=== PATIENT | female | born 1955 | race Caucasian/White ===

== ENCOUNTER 2017-10-16 19:40 | Inpatient (IN) | payer OTHER ==
[~2017-10-16] VITALS: Ht 165.1 cm; Wt 58.0 kg
--- NOTE | ~2017-10-16 | 2DMMODE ---
[facility] [address] [place] [address] 2 D/M-MODE ECHOCARDIOGRAM Name: ALLISON DE OLIVEIRA A Room #: 245-P [facility] IN M.R.#: [id number] Admission: 10/16/17 Attend Phys: Daniel Lu, Discharge: Date of : 53 Date of Service: 10/24/17 1849 Report #: [id number] THIS REPORT FOR: //name// APPROVED REPORT Study performed: 10/24/2017 12:48:59 EXAM: Comprehensive 2D, Doppler, and color-flow Echocardiogram Patient Location: Bedside Room #: [facility] Status: on-call BSA: 1.76 HR: 109 bpm BP: 101/71 mmHg Rhythm: NSR Other Information Study Quality: Adequate Risk Factors: Cardiac Risk Factors: Smoking Indications Septic Shock Pulmonary Edema Respiratory Failure 2D Dimensions LVEF(%): 77.30 (>50%) IVSd: 13.57 (7-11mm) LVOT Diam: 18.00 (18-24mm) LVDd: 32.55 mm PWd: 14.31 (7-11mm) Ascending Ao: 33.85 (22-36mm) LVDs: 17.98 (25-40mm) Aortic Root: 33.64 mm LV Single Plane 4CH: 68.89 % LV Single Plane 2CH: 67.29 % Armijo's LVEF: 68.09 % Biplane EF: 68.7 % Volumes Left Atrial Volume (Systole) Single Plane 4CH: 33.98 mL Single Plane 2CH: 31.36 mL LA ESV Index: 21.00 mL/m2 Aortic Valve AoV Peak Matt.: 1.60 m/s [facility] [address] [place] [address] 2 D/M-MODE ECHOCARDIOGRAM Name: ALLISON DE OLIVEIRA Elton Room #: [address] [place] [address] [place] ..#: [id number] Admission: 10/16/17 Attend Phys: Daniel Lu, Discharge: Date of : 53 Date of Service: 10/24/17 1849 Report #: [id number] AO Peak Gr.: 10.24 mmHg LVOT Max P.39 mmHg LVOT Max V: 1.45 m/s PEDRITO Vmax: 2.37 cm2 Pulmonary Valve PV Peak Matt.: 0.93 m/s PV Peak Gr.: 3.43 mmHg Left Ventricle The left ventricle is normal size. There is normal LV segmental wall motion. Mild concentric left ventricular hypertrophy. Left ventricular systolic function is normal. The left ventricular ejection fraction is within the normal range. LVEF is 70%. Mid LVot velocity is 40-45 mmHg. This study is not technically sufficient to allow evaluation of the LV diastolic function. Right Ventricle The right ventricle is normal size. The right ventricular systolic function is normal. Atria The left atrium size is normal. The right atrium size is normal. Aortic Valve The Aortic valve is mildly sclerotic. No aortic regurgitation is present. There is no aortic valvular stenosis. Mitral Valve There is mitral annular calcification. There is no mitral valve regurgitation noted. No evidence of mitral valve stenosis. Tricuspid Valve The tricuspid valve is normal in structure. There is no tricuspid valve regurgitation noted. Pulmonic Valve The pulmonary valve is normal in structure. There is no pulmonic valvular regurgitation. Great Vessels The aortic root is normal in size. IVC is not visualized. Pericardium There is no pericardial effusion. [facility] [address] [place] [address] 2 D/M-MODE ECHOCARDIOGRAM Name: ALLISON DE OLIVEIRA Room #: 245-P [facility] IN .R.#: [id number] Admission: 10/16/17 Attend Phys: Daniel Lu, Discharge: Date of : 53 Date of Service: 10/24/17 1849 Report #: [id number] <Conclusion> The left ventricle is normal size. Mild concentric left ventricular hypertrophy. LVEF is 70%. Mid LVot velocity is 40-45 mmHg. The right ventricular systolic function is normal. The left atrium size is normal. The Aortic valve is mildly sclerotic. There is no aortic valvular stenosis. There is mitral annular calcification. There is no mitral valve regurgitation noted. The aortic root is normal in size. There is no pericardial effusion. <ELECTRONICALLY SIGNED> By: Gorge Sorto MD, FACC 10/24/171848 48 48 Gorge Sorto MD, FACC /INF
--- NOTE | ~2017-10-16 | P ---
[facility] [place] [address] PROCEDURE REPORT Name: ALLISON DE OLIVEIRA Elton Room #: 245-P [facility] IN M.R.#: [id number] Admission: 10/16/17 Attend Phys: Daniel Lu MD Discharge: Date of : 53 Report #: [id number] THIS REPORT FOR: //name// CC: Daniel JANSEN DATE OF SERVICE: 10/19/2017 PROCEDURE: Upper endoscopy. PATIENT LOCATION: [facility]. INDICATIONS: The patient is a 61-year-old with history of alcohol abuse who presented with altered mental status and septic shock, found to be anemic with NG per aspirate, requiring blood transfusions. She had an NG placed, which was coiled in the esophagus, and the procedure was performed to evaluate cause of bleeding and to advance feeding tube. DESCRIPTION OF PROCEDURE: The patient was placed in the left lateral decubitus position in ICU at [facility], and the T2 adult upper endoscope was then advanced into the esophagus and to the extent of the second portion of the duodenum, then withdrawn slowly for careful inspection. The duodenum appeared normal. In the stomach, there was a large hiatal hernia and within the hernia sac was a small ulcer with a visible vessel. This was injected with 2 mL of epinephrine. Bipolar cautery was applied, and then, a hemostatic clip was placed. In the esophagus, she had LA grade B esophagitis in the lower third of the esophagus. No evidence of varices. The NG tube was then removed, and the Dobbhoff was advanced into the antrum. Due to significant looping, we could not advance into the duodenum, and a Dobbhoff was left in place and then scope was withdrawn carefully. There were no complications from the procedure. SPECIMENS REMOVED: None. ESTIMATED BLOOD LOSS: Zero mL. ANESTHESIA TYPE: Propofol per the ICU team. RECOMMENDATIONS: Change PPI infusion to pantoprazole 40 mg IV b.i.d. Avoid NSAIDs. Check a KUB to identify Dobbhoff is in proper place, then remove the stylet and use for feeding medications and water. Monitor H and H and transfuse as needed. We will follow along with you. <ELECTRONICALLY SIGNED> By: Brooks Stanley MD 10/19/17 1014 0904 1001 Brooks Stanley MD /nt
--- NOTE | ~2017-10-16 | HC ---
[facility] [place] [address] CONSULTATION Name: ALLISON DE OLIVEIRA Room #: 245-P ADM IN M.R.#: [id number] Admission: 10/16/17 Attend Phys: Daniel Lu MD Discharge: Date of : 53 Report #: [id number] THIS REPORT FOR: //name// CC: Vishal JANSEN DATE OF SERVICE: 10/17/2017 PULMONARY CRITICAL CARE CONSULTATION REFERRING PROVIDER: Ira Jennings. REASON FOR CONSULTATION: Respiratory failure. CHIEF COMPLAINT: Altered mental status and shortness of breath. HISTORY OF PRESENT ILLNESS: Our group was asked to urgently see the patient this morning. I was called late last night by at the Emergency Department. I came and evaluated the patient early this morning. The patient apparently presented to the Emergency Department and brought in by friends, unresponsive. Apparently, had been poorly responsive throughout the day. On the Emergency Department, was noted to be in severe acidosis with a pH of 6.9 and predominantly a metabolic acidosis. The patient also noted to have elevated liver enzymes, profound anemia and coagulopathy. The patient subsequently required intubation and aggressive supportive care in the Emergency Department. Currently, she is on mechanical ventilatory support, very tachypneic and poorly responsive. Unable to get any further history from the patient at this time. There is some dark brown material coming from her NG tube. ALLERGIES: None known. PAST MEDICAL HISTORY: 1. Hypothyroidism. 2. Probable obstructive lung disease. OUTPATIENT MEDICATIONS: Include magnesium oxide, folic acid, Synthroid, ferrous sulfate, tramadol, Spiriva and vitamin C. SOCIAL HISTORY: The patient is an active smoker. FAMILY HISTORY: Unobtainable. REVIEW OF SYSTEMS: Unobtainable due to her current neurologic status. PHYSICAL EXAMINATION: VITAL SIGNS: Hypothermic, pulse 100, respiratory rate 20 and blood pressure [facility] [address] [place] [address] CONSULTATION Name: ALLISON DE OLIVEIRA Elton Room #: 245-P [facility] IN [facility]#: [id number] Admission: 10/16/17 Attend Phys: Daniel Lu MD Discharge: Date of : 53 Report #: [id number] 98/76. GENERAL: This is a middle-aged woman, poorly responsive, on mechanical ventilatory support. ENT: No oropharyngeal lesions. NECK: Revealed a right IJ triple-lumen catheter in place. No surrounding erythema or hematoma. LUNGS: Revealed coarse breath sounds, the yellow secretions coming from endotracheal tube. CARDIOVASCULAR: Heart was regular. No murmurs noted. ABDOMEN: Soft. No masses. Diminished bowel sounds. EXTREMITIES: Cool distally. No edema. LABORATORY DATA: Chest x-ray and CT chest reveal bilateral right greater than left upper lobe infiltrates. There is a very large hiatal hernia and possibly paraesophageal hernia. Questionable gallbladder wall thickening on CT abdomen and pelvis and possibly mild colitis. Significant fatty liver noted on CT imaging as well. Cultures are pending. IMPRESSION: 1. Respiratory failure. 2. Severe metabolic acidosis. 3. Severe sepsis, presumed pneumonia as source. We will check influenza screen, respiratory viral panel and cultures. 4. Large paraesophageal hernia, but still be concerned about ischemia of the herniated bowel. 5. Possible colitis. 6. History of tobacco abuse with probable chronic obstructive pulmonary disease. SUGGESTIONS: 1. Bronchodilators. 2. Multiple consultants including Nephrology for oliguria and likely oliguric renal failure with delay in the rise in creatinine as well as Infectious Disease Service. 3. Continue with supportive ICU care. 4. Follow arterial blood gases regarding acidosis. 5. GI consultation regarding elevated liver enzymes and bilirubin. 6. Further recommendations to follow. Total critical care time 40 minutes, not including procedures. Discussed with nursing at the bedside earlier this morning. <ELECTRONICALLY SIGNED> By: Bhupinder Mulligan MD 10/21/17 1823 0821 1117 Bhupinder Mulligan MD /nt
--- NOTE | ~2017-10-16 | P ---
[facility] [place] [address] PROCEDURE REPORT Name: ALLISON DE OLIVEIRA Elton Room #: 245-P [facility] IN M.R.#: [id number] Admission: 10/16/17 Attend Phys: Daniel Lu MD Discharge: Date of : 53 Report #: [id number] THIS REPORT FOR: //name// CC: Vishal JANSEN DATE OF SERVICE: 10/17/2017 PROCEDURE: Left radial arterial line placement. INDICATION: Hypotension, on multiple vasopressors, on high-dose vasopressors, need for continuous blood pressure monitoring. PROCEDURE NOTATION: Left radial artery was chosen for site and was placed in optimal positioning. It was cleansed with 2% chlorhexidine gluconate. A sterile field was created and using 20-gauge Arrow arterial catheter kit, the left radial artery was accessed on the third attempt. Catheter was easily advanced into this position and was sutured in place with 3-0 silk and connected to a pressure transducer. Good waveform noted on the monitor. Line flushed and aspirated easily. Good distal perfusion noted post-procedure. This was dressed with clear Op-Site. <ELECTRONICALLY SIGNED> By: Bhupinder Mulligan MD 10/21/17 1823 0815 1104 Bhupinder Mulligan MD /nt
--- NOTE | ~2017-10-16 | HC ---
[facility] [address] CONSULTATION Name: ALLISON DE OLIVEIRA Elton Room #: 245-P [facility] IN .R.#: [id number] Admission: 10/16/17 Attend Phys: Vishal Meier DO Discharge: Date of : 53 Report #: [id number] THIS REPORT FOR: //name// CC: Vishal JANSEN DATE OF SERVICE: 10/17/2017 NEPHROLOGY CONSULTATION REASON FOR CONSULTATION: Renal failure and oliguria as well as multiple electrolyte abnormalities. HISTORY OF PRESENT ILLNESS: This is a 61-year-old female who was brought into the Emergency Room by a friend last evening. Upon arrival, she was hypotensive and hypoglycemic. She was found to be septic. She had bilateral pulmonary infiltrates. Her presenting blood pressure was 83/46. She had a temperature of 94.1 at that time and an oxygen saturation of 88%. She was given a couple of liters of IV fluids for resuscitation in the Emergency Room. She was eventually intubated because of her poor respiratory status. She was placed in the ICU on sepsis protocol. We were asked to see her as her creatinine level was elevated on admission to 1.8; it is actually down to 1.5, but she has been oliguric. She developed multiple electrolyte abnormalities and she also has a severe metabolic acidosis. Her presenting bicarbonate was only 10. Her presenting anion gap was 34 and she had a blood gas on first presentation of 6.99 with a pCO2 of 29 and a pO2 of 71. Lactate was 7.44. She has been documented to have a high number of ketones in her urine. We were called to see her this morning. Overnight, she had 250 mL of urine output. She had 450 mL out through her NG tube. She had 5.3 liters of intake. She remains on Levophed at 4 mcg per minute at this point. Blood pressure has improved, running in the 120/70 range at this time. She does have better oxygen saturation. PAST MEDICAL HISTORY: Unobtainable from the patient at this time. This is only available through her ER visit note prior to intubation. It looks like she has some hypothyroidism and is on some replacement, although that dose is small. She has been known be chronically anemic. She has a large hiatal hernia, although I do not know how much she has had as far as symptoms related to that. Little else available historically at this point. We have no older records of this hospital available. The other prior ones were from 1996 and 1998 and those have all been purged from the system. ADMITTING MEDICATIONS: Magnesium 400 mg daily, folate 1 mg daily, levothyroxine 0.025 mg daily, iron 325 mg daily, tramadol p.r.n., Spiriva inhaler and some vitamin C 500 mg daily. [address] [address] CONSULTATION Name: ALLISON DE OLIVEIRA Elton Room #: 245-P ADM IN M.R.#: [id number] Admission: 10/16/17 Attend Phys: Vishal Meier DO Discharge: Date of : 53 Report #: [id number] ALLERGIES: No known medical allergies. FAMILY HISTORY: Unavailable. SOCIAL HISTORY: The patient is , lives in [place], [place]. That being said, she was brought in by a friend and there has been a son who has come in, but no other family has been around. No children and no family at this time. The admitting record shows that she is disabled, although I do not have the details of that. REVIEW OF SYSTEMS: Similarly unavailable. PHYSICAL EXAMINATION: GENERAL: A 61-year-old female who was seen in the Intensive Care Unit. She is orally intubated. She is sedated at this time. VITAL SIGNS: Blood pressure 114/67, heart rate 100, respiratory rate is 28, oxygen saturation 100% and CVP is only about 11 overall. HEENT: Pupils are 2 mm. She does show icteric sclerae. She is orally intubated. NECK: Supple. No JVD. CHEST: Shows fairly symmetrical breath sounds. They are coarse. There are some posterior rales. HEART: Has a borderline tachycardia, but is regular. ABDOMEN: Has absent bowel sounds. Abdomen is very firm, particularly right middle and right lower quadrant. Difficult to tell if this is a big liver or if there is some other mass or fullness going on in the right abdomen. Left side is much less firm. EXTREMITIES: Show no peripheral edema. She has dramatically decreased skin turgor diffusely. I see no rashes. DIAGNOSTIC DATA: Chest x-ray shows bilateral infiltrates. I reviewed her CT scan of her chest. It confirms bilateral multilobar infiltrates, no particular. Note, the liver was interpreted as having severe hepatic steatosis. From what I could see of the kidneys, they were of normal size and unobstructed. Lab on admission: Sodium 140, potassium 3.2, chloride 96, bicarbonate 10, BUN 17, creatinine 1.8 and glucose at that time was 46. She received glucose and insulin. AST of 226, ALT of 63. Calcium 8.5. Total protein 6.0. Albumin 2.6. Total bilirubin 4.4, alkaline phosphatase 294. About 8 hours later, sodium 143, potassium 2.2, chloride 105, bicarb 15, BUN 16, creatinine 1.5, glucose 125 and calcium 6.6. Acetaminophen is negative. Alcohol is negative. Salicylates were 4.3. Free T4 was 0.7. White count 13.6, hemoglobin 6.5, hematocrit 21.9 and platelets 257,000. Differential on the white count; 81 segs, 3 bands, 9 lymphs and 5 monocytes. Urinalysis: Specific gravity 1.025, pH 6.0, 1+ [facility] [address] [place] [address] CONSULTATION Name: DE OLIVEIRAALLISON Room #: 245-P [facility] IN [facility].#: [id number] Admission: 10/16/17 Attend Phys: Vishal Meier DO Discharge: Date of : 53 Report #: [id number] protein, 3+ ketones, 2+ bilirubin, 0-5 white cells and no red cells. Blood gas on initial presentation, pH of 6.99, pCO2 of 29.2 and pO2 of 71.5 with a lactate of 7.4. Again at 04:00, pH of 7.25, pCO2 of 22, pO2 of 103 and lactate at 1.73. ASSESSMENT: 1. Sepsis. She presented with hypotension, hypoglycemia, hypothermia, leukocytosis and bilateral pulmonary infiltrates. She has been given some IV fluids. Blood pressure is still somewhat marginal. She is still dry on exam and needs more fluid. Cultures have been drawn and she has been started on broad-spectrum antibiotics for sepsis protocol. Hemodynamically, she is doing a bit better. We will await cultures. 2. Acute kidney injury. She remains oliguric. She is still dry on exam and that is quite profoundly so. She has gotten quite a bit of fluids, but we will give her some additional half normal saline. As her blood pressure maintains adequately, she will start making some more urine. Kidneys are unobstructed. Creatinine has actually started to drop mildly already with additional IV fluids. 3. Hypokalemia, severe. She has gotten some insulin and dextrose unfortunately, and now I will make her potassium shift more. Also, as her acidosis corrects, she will shift more potassium. So, she is probably several 100 milliequivalents deplete. We will give her 120 mEq over the next 6-10 hours and follow along with her potassium. I am sure she will need more thorough potassium replacement. In addition, we need to check her divalent cations and anions, including magnesium and phosphatase as she could well be depleted of all those. 4. Acidosis, metabolic with a combined lactate and ketoacidosis. Her lactate is largely corrected with blood pressure and volume replacement and treatment of her sepsis. She still has significant ketones. Anion gap is still high. She needs further volume, dextrose infusion and as she starts to metabolize, that her ketoacidosis will clear. She should need additional bicarbonate at this time is her pH is actually correcting fairly readily. 5. Respiratory failure with bilateral pulmonary infiltrates, on broad-spectrum antibiotics. 6. Anemia, severe. She is already getting 2 units of packed red blood cells. She has a very high MCV. Workup to follow. 7. Hepatic failure. Bilirubin is over 4. AST is very elevated, ALT is not as elevated. With her high MCV, all that pattern might suggest alcohol as an etiology, but her liver on exam appears very large. Only if there is not some other underlying hepatic abnormalities here, workup as we go along. 8. Hypothyroidism. She will need continued replacement. PLAN: 1. I will increase her IV fluids and give her another liter of half normal saline on top of which is already getting. 2. Potassium replacement IV. Again, we will target a 120 mEq and see how she responds to that. I do expect her potassium will remain very low as her [facility] [address] [place] [address] CONSULTATION Name: ALLISON DE OLIVEIRA Room #: 245-P [facility] IN M.R.#: [id number] Admission: 10/16/17 Attend Phys: Vishal Meier DO Discharge: Date of : 53 Report #: [id number] acidosis corrects. 3. Follow up hemoglobin. 4. Await cultures. 5. Continue intensive supportive care. 6. Down the line, further evaluation of her hepatic status. <ELECTRONICALLY SIGNED> By: Roger Valdovinos MD 10/18/17 1231 0829 1211 Roger Valdovinos MD /nt
--- NOTE | ~2017-10-16 | EKG ---
[place] [address] [address] [place] [address] ELECTROCARDIOGRAM REPORT Name: DE OLIVEIRAALLISON Room #: 170-12 ADM IN M.R.#: [id number] Admission: 10/16/17 Attend Phys: Vishal Meier DO Discharge: Date of : 53 Report #: [id number] THIS REPORT FOR: //name// [facility] ED Test Date: 2017-10-16 Test Time: 19:59:56 Pat Name: ALLISON DE OLIVEIRA Department: Room: 170 Gender: F [employer] Engineer [employer]: [id number] : [id number] Requested By: Lucero Villalobos Order Number: [id number] MD: Kushal Esquivel Measurements Intervals Volcano Rate: 86 P: 40 AL: 171 QRS: 24 QRSD: 86 T: 52 QT: 467 QTc: 559 Interpretive Statements Sinus rhythm Borderline low voltage, extremity leads Abnormal R-wave progression, early transition Prolonged QT interval Compared to ECG 03/15/1997 12:30:00 Prolonged QT interval now present Sinus bradycardia no longer present Electronically Signed On 10-16-2017 23:07:36 CLINICAL PARTNER by Kushal Esquivel [email or web address] <ELECTRONICALLY SIGNED> By: Kushal Esquivel MD 10/16/17 2307 58 58 Kushal Esquivel MD /EPI
--- NOTE | ~2017-10-16 | HC ---
[facility] [place] [address] CONSULTATION Name: ALLISON DE OLIVEIRA Room #: 245-P [facility] IN M.R.#: [id number] Admission: 10/16/17 Attend Phys: Vishal Meier DO Discharge: Date of : 53 Report #: [id number] THIS REPORT FOR: //name// CC: Vishal JANSEN DATE OF SERVICE: 10/17/2017 INFECTIOUS DISEASE CONSULTATION ATTENDING PHYSICIAN: Vishal Meier DO. REASON FOR CONSULTATION: Sepsis. HISTORY OF PRESENT ILLNESS: A 61-year-old white woman is brought to the Emergency Room by a friend, reporting that the patient was doing rather poorly, with increasing difficulty in breathing and extreme weakness. The patient is found to be septic. She is started on Levaquin, vancomycin and Zosyn. She is on pressors. Now she is in the intensive care unit. She is intubated through oral cavity. She has needed a radial artery catheter as well as right internal jugular central venous catheter. The patient is gravely ill and unable to give any information whatsoever. All information on this patient is gathered from the review of her records. DRUG ALLERGIES: None listed. MEDICATIONS: The patient is on Levaquin 750 mg every 48 hours, vancomycin 500 mg IV every 12 hours, Zosyn 3.375 grams IV every 6 hours, chlorhexidine oral care, Atrovent and albuterol inhalation treatments, D5 normal saline at 1000 mL every 8 hours, hydrocortisone 100 mg IV every 6 hours, propofol sedation, p.r.n. glucose and p.r.n. glucagon. She is receiving Levophed. She is also on ondansetron drip. She is on epinephrine and vasopressin per protocol, but not receiving these yet. She is sedated with midazolam. Regular insulin drip ongoing, replacement of potassium and magnesium per protocol. SOCIAL HISTORY: Unable to obtain. FAMILY HISTORY: Unable to obtain. REVIEW OF SYSTEMS: Unable to obtain. PAST MEDICAL HISTORY: Unable to obtain. MEDICATIONS: A review of records from the Emergency Room indicates the patient is on treatment at home with folic acid, levothyroxine, tramadol, Tiotropium. From medications, it can be surmise that the patient may have hypothyroidism as [address] [address] CONSULTATION Name: ALLISON DE OLIVEIRA Elton Room #: 245-P [facility] IN [facility].#: [id number] Admission: 10/16/17 Attend Phys: Vishal Meier DO Discharge: Date of : 53 Report #: [id number] well as COPD. PHYSICAL EXAMINATION: GENERAL: A chronically ill-appearing woman in the intensive care unit, sedated, intubated through oral cavity. VITAL SIGNS: On admission, her temperature is 94.1, pulse 89, respirations 20 and BP 83/46. Her CVP is rather low at 7. Fluid resuscitation, CVP rises. HEENT: Head normocephalic, atraumatic. Pupils equal. Mouth, unable to examine. NECK: Right internal jugular central venous catheter. LUNGS: Rhonchi, crackles bilaterally. HEART: S1, S2. No gallop or murmur. ABDOMEN: Soft. No masses or megaly. PELVIC AND RECTAL EXAMINATION: Deferred. She has a Gallegos catheter in place. EXTREMITIES: Reveal some edema of legs and rather dry skin. NEUROLOGIC: Unable to evaluate. LABORATORY DATA: Sodium 136; potassium 2.2; CO2 of 15; BUN 16; creatinine on admission is 1.8, now is 1.5 mg/dL and glucose on admission is 46, now is 125. SGOT elevated 242 units per L. Total bilirubin elevated 4.3 mg/dL, direct bilirubin 3.5 mg/dL and alkaline phosphatase 300 units per liter. Albumin 2.7 g/dL. Serum ammonia elevated at 132 micromoles per liter. The lactic acid was significantly elevated. This has dropped now. NT-proBNP 1618. Protime 23.4. Fibrinogen decreased at 127.8 mg/dL. Drug screen positive for marijuana. WBC 13.6, hemoglobin 6.5 g/dL. She received 2 units of packed red cells. Repeat CBC is pending. The MCV significantly elevated at 118 femtoliters. The platelets 257,000. White blood cell count differential revealed 81% segmented neutrophils and 3% bands. Procalcitonin 0.34. TSH mildly elevated. The urinalysis revealed 1+ protein, 3+ ketones, 2+ bilirubin, positive trace and positive urobilinogen trace. The microscopic exam revealed bacteriuria. ABGs reveal a pH of 7.25, pCO2 of 22, pO2 of 103, bicarbonate 9.5 and lactate decreased at 1.73. This set of gases is on FIO2 of 60%, 5 of PEEP. RADIOLOGY EVALUATION: Chest x-ray revealed bilateral interstitial pulmonary infiltrates. CT scan of the chest revealed bilateral interstitial infiltrates with mixed fine reticular ground-glass opacities, possible alveolar infiltrates as well. There is a large hiatal hernia that contains the stomach as well as splenic flexure of the colon and severe hepatic steatosis. CT scan of the abdomen is pending. CT scan of the head revealed no significant abnormalities. MICROBIOLOGY DATA: Rapid influenza antigens A and B are not detected. Blood cultures are pending. Stool positive for occult blood. Sputum gram stain and cultures are pending at the time of this dictation. ASSESSMENT: 1. Severe sepsis. [facility] [address] [place] [address] CONSULTATION Name: ALLISON DE OLIVEIRA Elton Room #: 245-P ADM IN M.R.#: [id number] Admission: 10/16/17 Attend Phys: Vishal Meier DO Discharge: Date of : 53 Report #: [id number] 2. Bilateral pulmonary infiltrates, interstitial in nature, entertain possibility of atypical pneumonitis. 3. Abnormal liver function tests and underlying hepatic steatosis, entertain possibility of steatohepatitis and liver cirrhosis. 4. Lactic acidosis, improved. 5. Possible chronic obstructive pulmonary disease. 6. Rule out vitamin B12 and folate deficiency. SUGGESTIONS: Recommend continue to monitor laboratory parameters, fluid resuscitation. Continue coverage with Levaquin, Zosyn and vancomycin. Obtain sputum for viral respiratory panel. Start Tamiflu. Dr. Meier, thank you for requesting my suggestions in the care of your patient. <ELECTRONICALLY SIGNED> By: Damion Brewer MD 10/18/17 0716 [id number] [id number] Damion Brewer MD /nt
[2017-10-16 19:41] VITALS: BP 83/46
[2017-10-16] MEDS ORDERED: MAGOX 400400 MG PO (19:45)
[2017-10-16] MEDS ORDERED: FOLIC ACID1 MG PO (19:45)
[2017-10-16] MEDS ORDERED: SPIRIVA INH (19:46)
[2017-10-16] MEDS ORDERED: IRON325 PO (19:46)
[2017-10-16] MEDS ORDERED: SYNTHROID25 MCG PO (19:46)
[2017-10-16] MEDS ORDERED: TRAMADOL 50 MG50 MG PO (19:46)
[2017-10-16] MEDS ORDERED: VITAMIN B1 (19:47)
[2017-10-16] MEDS ORDERED: VITAMINC500 PO (19:47)
[2017-10-16 20:07] LABS: POC CA IONIZED 4.4 mg/dL (4.5-5.3); POC CREATININE 1.6 mg/dL (0.6-1.3); POC HEMOGLOBIN 6.8 g/dL (12.0-15.0); POC POTASSIUM 3.2 mmol/L (3.5-5.1)
[2017-10-16 20:18] LABS: HEMATOCRIT 21.9 % (37.0-47.0); HEMOGLOBIN 6.5 gm/dL (12.0-15.0); MCH 35.3 pg (26.0-34.0); MCHC 29.9 g/dL (28.0-37.0); MCV 118.1 fL (80.0-100.0); PLATELET COUNT 257 thou/uL (150-400); RBC 1.85 mil/uL (4.20-5.00); RDW 21.8 % (10.5-14.5); WBC 13.6 thou/uL (4.0-11.0)
[2017-10-16 20:29] LABS: BUN 17 mg/dL (7-18); CALCIUM 8.5 mg/dL (8.5-10.1); CREATININE 1.8 mg/dL (0.6-1.0); GLUCOSE 46 mg/dL (74-106)
[2017-10-16 20:30] LABS: URINE BILIRUBIN 2+ (Negative); URINE BLOOD NEGATIVE (Negative); URINE CLARITY CLEAR; URINE COLOR YELLOW; URINE GLUCOSE-RANDOM* NEGATIVE (Negative); URINE KETONES 3+ (Negative); URINE LEUKOCYTES NEGATIVE (Negative); URINE NITRITE NEGATIVE (Negative); URINE PROTEIN (DIPSTICK) 1+ (Negative); URINE SPECIFIC GRAVITY 1.025 (1.005-1.035)
[2017-10-16 20:35] LABS: ICTOTEST (BILI CONFIRMATORY) Positive (Negative)
[2017-10-16 20:37] LABS: URINE REDUCING SUBSTANCE NEGATIVE
[2017-10-16 20:38] LABS: ALBUMIN 2.6 g/dL (3.4-5.0); SGOT 226 U/L (15-37); SGPT 63 U/L (30-65); TOTAL BILIRUBIN 4.4 mg/dL (<0.1-1.0); TROPONIN-I < 0.04 ng/mL (<0.06)
[2017-10-16 20:38] LABS: BACTERIA >30 Many /HPF (None Seen); CASTS None Seen /LPF (None Seen); CRYSTALS None Seen /LPF (None Seen); SQUAMOUS 0-3 Few /LPF (0-3); URINE RBC None Seen /HPF (0-2); URINE WBC 0-5 Rare /HPF (0-5)
[2017-10-16 20:43] LABS: AMP/METHAMP Negative (Negative); BARBITURATES Negative (Negative); BENZODIAZEPINES Negative (Negative); COCAINE Negative (Negative); METHADONE Negative (Negative); OPIATES Negative (Negative); PCP Negative (Negative)
[2017-10-16 20:45] LABS: ANION GAP 34 mmol/L (7-16); CHLORIDE 96 mmol/L (98-107); POTASSIUM 3.2 mmol/L (3.5-5.1); SODIUM 140 mmol/L (136-145)
[2017-10-16 20:47] LABS: HCO3 6.9 mmol/L (22.0-26.0); PCO2 29.2 mmHg (35.0-45.0); PO2 71.5 mmHg (80.0-100.0); pH 6.993 (7.360-7.450)
[2017-10-16 20:48] LABS: BE(vivo) -22.4 mmol/L (-2 to +3); sO2 84.5 % (92.0-98.0)
[2017-10-16 20:49] LABS: CO2 10 mmol/L (21-32); SALICYLATE 4.3 mg/dL (2.8-20.0)
[2017-10-16 20:53] LABS: ABSOLUTE NEUTROPHILS 10.3 thou/uL (1.4-8.2); ANISOCYTOSIS 1+; CORRECTED WBC 12.3 thou/uL (4.0-11.0); LARGE PLATELETS RARE; MACROCYTES 3+; METAMYELOCYTES 2 %; NUCLEATED RBCS 11 /100WBC; POLYCHROMASIA OCCASIONAL
[2017-10-16 21:49] LABS: ALBUMIN 2.7 g/dL (3.4-5.0); DIRECT BILIRUBIN 3.5 mg/dL (<0.1-0.3); TOTAL BILIRUBIN 4.3 mg/dL (<0.1-1.0)
[2017-10-16 22:32] LABS: CALCIUM 7.3 mg/dL (8.5-10.1); CREATININE 1.7 mg/dL (0.6-1.0)
[2017-10-16 23:07] LABS: BE(vivo) -20.9 mmol/L (-2 to +3); HCO3 7.3 mmol/L (22.0-26.0); PCO2 25.5 mmHg (35.0-45.0); PO2 97.2 mmHg (80.0-100.0); sO2 94.6 % (92.0-98.0)
[2017-10-16 23:08] LABS: pH 7.076 (7.360-7.450)
[2017-10-16 23:15] VITALS: BP 121/78; BP 126/96
[2017-10-17] VITALS (21 sets, daily range): BP systolic 60–137; BP diastolic 49–89
[2017-10-17 00:28] LABS: APTT 36.9 Seconds (24.5-32.8); FIBRINOGEN 133.5 mg/dL (210-360); INR 2.7; PROTIME 26.9 Seconds (9.3-11.4)
[2017-10-17 04:05] LABS: BE(vivo) -16.2 mmol/L (-2 to +3); HCO3 9.5 mmol/L (22.0-26.0); PO2 103.1 mmHg (80.0-100.0); pH 7.254 (7.360-7.450); sO2 97.1 % (92.0-98.0)
[2017-10-17 04:53] LABS: CALCIUM 6.6 mg/dL (8.5-10.1); CREATININE 1.5 mg/dL (0.6-1.0)
[2017-10-17 04:56] LABS: APTT 34.2 Seconds (24.5-32.8); FIBRINOGEN 127.8 mg/dL (210-360); INR 2.3; POTASSIUM 2.2 mmol/L (3.5-5.1); PROTIME 23.4 Seconds (9.3-11.4)
[2017-10-17 09:01] LABS: HEMATOCRIT 27.3 % (37.0-47.0); MCH 33.1 pg (26.0-34.0); MCHC 33.5 g/dL (28.0-37.0); RBC 2.77 mil/uL (4.20-5.00); RDW 23.1 % (10.5-14.5); WBC 5.8 thou/uL (4.0-11.0)
[2017-10-17 09:03] LABS: CREATININE 1.5 mg/dL (0.6-1.0)
[2017-10-17 09:06] LABS: MAGNESIUM 1.7 mg/dL (1.8-2.4)
[2017-10-17 09:10] LABS: POTASSIUM 2.6 mmol/L (3.5-5.1)
[2017-10-17 09:12] LABS: HEMOGLOBIN 9.2 gm/dL (12.0-15.0); MCV 98.8 fL (80.0-100.0); PLATELET COUNT 159 thou/uL (150-400)
[2017-10-17 09:13] LABS: INR 2.2
[2017-10-17 09:20] LABS: APTT 32.8 Seconds (24.5-32.8); FIBRINOGEN 139.6 mg/dL (210-360)
[2017-10-17 11:13] LABS: % SATURATION 101 % (20-39); IRON 92 ug/dL (50-170); TIBC 91 ug/dL (250-450)
[2017-10-17 11:21] LABS: ABSOLUTE NEUTROPHILS 4.4 thou/uL (1.4-8.2); ATYPICAL LYMPHS 1 %; CORRECTED WBC 4.9 thou/uL (4.0-11.0); METAMYELOCYTES 2 %; NUCLEATED RBCS 19 /100WBC
[2017-10-17 11:22] LABS: POLYCHROMASIA 1+
[2017-10-17 11:24] LABS: ANISOCYTOSIS 2+; MICROCYTES 1+
[2017-10-17 11:25] LABS: HYPOCHROMASIA 1+
[2017-10-17 11:37] LABS: FOLIC ACID 5.5 ng/mL (8.6-58.9)
[2017-10-17 12:04] LABS: BE(vivo) -6.4 mmol/L (-2 to +3); HCO3 18.2 mmol/L (22.0-26.0); PCO2 32.8 mmHg (35.0-45.0); pH 7.363 (7.360-7.450)
[2017-10-17 12:40] LABS: APTT 33.1 Seconds (24.5-32.8); FIBRINOGEN 125.7 mg/dL (210-360); PROTIME 20.6 Seconds (9.3-11.4)
[2017-10-17 17:35] LABS: URINE BILIRUBIN 2+ (Negative); URINE BLOOD 1+ (Negative); URINE COLOR YELLOW; URINE GLUCOSE-RANDOM* NEGATIVE (Negative); URINE KETONES 1+ (Negative); URINE PROTEIN (DIPSTICK) 1+ (Negative); URINE SPECIFIC GRAVITY 1.015 (1.005-1.035)
[2017-10-17 17:36] LABS: URINE CLARITY CLOUDY; URINE LEUKOCYTES-REFLEX TRACE (Negative); URINE NITRITE-REFLEX POSITIVE (Negative)
[2017-10-17 17:37] LABS: ICTOTEST (BILI CONFIRMATORY) Positive (Negative)
[2017-10-17 17:50] LABS: AMORPHOUS URATES Many /LPF (None Seen); BACTERIA-REFLEX None Seen /HPF (None Seen); CASTS None Seen /LPF (None Seen); SQUAMOUS 0-3 Few /LPF (0-3); URINE RBC 0-2 Rare /HPF (0-2); URINE WBC-REFLEX 0-5 Rare /HPF (0-5)
[2017-10-18 01:45] VITALS: BP 110/73
[2017-10-18 04:54] LABS: ABSOLUTE NEUTROPHILS 9.4 thou/uL (1.4-8.2); BASOPHILS 0.5 % (0.0-2.0); EOSINOPHILS 0.1 % (0.0-3.0); HEMATOCRIT 27.5 % (37.0-47.0); HEMOGLOBIN 9.2 gm/dL (12.0-15.0); LYMPHOCYTES 4.4 % (24.0-44.0); MCH 33.2 pg (26.0-34.0); MCHC 33.5 g/dL (28.0-37.0); MCV 99.1 fL (80.0-100.0); MONOCYTES 7.9 % (1.0-8.0); PLATELET COUNT 145 thou/uL (150-400); POLYS 87.1 % (36.0-66.0); RBC 2.77 mil/uL (4.20-5.00); RDW 24.1 % (10.5-14.5); WBC 10.8 thou/uL (4.0-11.0)
[2017-10-18 05:15] LABS: CALCIUM 7.1 mg/dL (8.5-10.1); CREATININE 1.4 mg/dL (0.6-1.0); TOTAL BILIRUBIN 5.1 mg/dL (<0.1-1.0)
[2017-10-18 05:17] LABS: POTASSIUM 4.5 mmol/L (3.5-5.1)
[2017-10-18 05:19] LABS: BE(vivo) -8.8 mmol/L (-2 to +3); HCO3 15.2 mmol/L (22.0-26.0); PCO2 26.8 mmHg (35.0-45.0); PO2 94.7 mmHg (80.0-100.0); pH 7.371 (7.360-7.450); sO2 97.2 % (92.0-98.0)
[2017-10-18 06:07] LABS: HEPATITIS B SURFACE AG Negative (Negative); HEPATITIS C VIRUS AB 0.1 (0.0-0.9)
[2017-10-18 06:20] LABS: INR 1.6; PROTIME 16.4 Seconds (9.3-11.4)
[2017-10-19 03:05] LABS: GLYCOHEMOGLOBIN (HGB A1C) 4.4 % (4.8-5.6)
[2017-10-19 05:10] LABS: HEMATOCRIT 26.2 % (37.0-47.0); HEMOGLOBIN 8.5 gm/dL (12.0-15.0); MCH 32.6 pg (26.0-34.0); MCHC 32.4 g/dL (28.0-37.0); MCV 100.5 fL (80.0-100.0); PLATELET COUNT 116 thou/uL (150-400); RDW 24.1 % (10.5-14.5); WBC 12.7 thou/uL (4.0-11.0)
[2017-10-19 05:25] LABS: ALBUMIN 1.8 g/dL (3.4-5.0); CALCIUM 7.1 mg/dL (8.5-10.1); CREATININE 1.3 mg/dL (0.6-1.0); MAGNESIUM 2.1 mg/dL (1.8-2.4); PHOSPHORUS 2.3 mg/dL (2.5-4.9); POTASSIUM 5.2 mmol/L (3.5-5.1); TOTAL BILIRUBIN 4.9 mg/dL (<0.1-1.0); TOTAL PROTEIN 4.9 g/dL (6.4-8.2)
[2017-10-19 06:45] LABS: ABSOLUTE NEUTROPHILS 11.9 thou/uL (1.4-8.2); ANISOCYTOSIS 2+; MACROCYTES 2+; METAMYELOCYTES 1 %; NUCLEATED RBCS 6 /100WBC; POLYCHROMASIA OCCASIONAL
[2017-10-19 14:46] LABS: BE(vivo) -6.7 mmol/L (-2 to +3); HCO3 16.8 mmol/L (22.0-26.0); PCO2 26.6 mmHg (35.0-45.0); PO2 97.3 mmHg (80.0-100.0); pH 7.418 (7.360-7.450); sO2 97.6 % (92.0-98.0)
[2017-10-20 04:53] LABS: BE(vivo) -6.9 mmol/L (-2 to +3); HCO3 16.9 mmol/L (22.0-26.0); PCO2 28.3 mmHg (35.0-45.0); PO2 101.3 mmHg (80.0-100.0); pH 7.394 (7.360-7.450); sO2 97.7 % (92.0-98.0)
[2017-10-20 05:17] LABS: HEMOGLOBIN 8.3 gm/dL (12.0-15.0); MCH 32.3 pg (26.0-34.0)
[2017-10-20 05:19] LABS: HEMATOCRIT 25.8 % (37.0-47.0); MCHC 32.2 g/dL (28.0-37.0); MCV 100.6 fL (80.0-100.0); RBC 2.57 mil/uL (4.20-5.00); RDW 23.1 % (10.5-14.5); WBC 14.8 thou/uL (4.0-11.0)
[2017-10-20 05:36] LABS: ALBUMIN 1.8 g/dL (3.4-5.0); CALCIUM 7.3 mg/dL (8.5-10.1); CREATININE 1.1 mg/dL (0.6-1.0); PHOSPHORUS 2.5 mg/dL (2.5-4.9); POTASSIUM 4.9 mmol/L (3.5-5.1)
[2017-10-20 13:12] LABS: MITOCHONDRIAL ANTIBODY 5.5 Units (0.0-20.0)
[2017-10-21] VITALS (14 sets, daily range): BP systolic 98–121; BP diastolic 74–91
[2017-10-21 00:06] LABS: ADENOVIRUS Negative (Negative); INFLUENZA A Negative (Negative); INFLUENZA B Negative (Negative); METAPNEUMOVIRUS Negative (Negative); PARAINFLUENZA 1 Negative (Negative); PARAINFLUENZA 2 Negative (Negative); PARAINFLUENZA 3 Negative (Negative); RHINOVIRUS Negative (Negative); RSV A Negative (Negative); RSV B Negative (Negative)
[2017-10-21 05:10] LABS: BE(vivo) -6.3 mmol/L (-2 to +3); HCO3 17.4 mmol/L (22.0-26.0); PCO2 28.2 mmHg (35.0-45.0); PO2 148.8 mmHg (80.0-100.0); pH 7.407 (7.360-7.450)
[2017-10-21 05:32] LABS: HEMOGLOBIN 8.6 gm/dL (12.0-15.0)
[2017-10-21 05:45] LABS: ALBUMIN 1.8 g/dL (3.4-5.0); DIRECT BILIRUBIN 3.8 mg/dL (<0.1-0.3); TOTAL BILIRUBIN 4.4 mg/dL (<0.1-1.0)
[2017-10-21 08:24] LABS: CALCIUM 7.8 mg/dL (8.5-10.1); POTASSIUM 4.8 mmol/L (3.5-5.1)
[2017-10-21 10:36] LABS: MAGNESIUM 1.9 mg/dL (1.8-2.4); PHOSPHORUS 2.7 mg/dL (2.5-4.9)
[2017-10-21 15:08] LABS: BE(vivo) -5.6 mmol/L (-2 to +3); HCO3 17.6 mmol/L (22.0-26.0); PCO2 26.5 mmHg (35.0-45.0); PO2 126.9 mmHg (80.0-100.0); pH 7.439 (7.360-7.450); sO2 98.7 % (92.0-98.0)
[2017-10-22] VITALS (35 sets, daily range): BP systolic 86–126; BP diastolic 62–94
[2017-10-22 06:19] LABS: % SATURATION 110 % (20-39); IRON 102 ug/dL (50-170); TIBC 93 ug/dL (250-450)
[2017-10-22 06:20] LABS: ALBUMIN 1.8 g/dL (3.4-5.0); DIRECT BILIRUBIN 3.7 mg/dL (<0.1-0.3); INR 1.2; PROTIME 11.9 Seconds (9.3-11.4); TOTAL BILIRUBIN 4.3 mg/dL (<0.1-1.0)
[2017-10-22 06:32] LABS: TOTAL PROTEIN 5.3 g/dL (6.4-8.2)
[2017-10-22 10:13] LABS: BE(vivo) -4.2 mmol/L (-2 to +3); HCO3 19.3 mmol/L (22.0-26.0); PCO2 29.5 mmHg (35.0-45.0); PO2 106.6 mmHg (80.0-100.0); pH 7.434 (7.360-7.450); sO2 98.1 % (92.0-98.0)
[2017-10-22 10:18] LABS: CALCIUM 8.8 mg/dL (8.5-10.1); CREATININE 0.9 mg/dL (0.6-1.0); PHOSPHORUS 2.7 mg/dL (2.5-4.9)
[2017-10-23] VITALS (24 sets, daily range): BP systolic 81–122; BP diastolic 65–95
[2017-10-23 05:42] LABS: BE(vivo) -3.1 mmol/L (-2 to +3); HCO3 19.8 mmol/L (22.0-26.0); PCO2 27.5 mmHg (35.0-45.0); PO2 60.3 mmHg (80.0-100.0); pH 7.475 (7.360-7.450); sO2 93.1 % (92.0-98.0)
[2017-10-23 06:08] LABS: HEMATOCRIT 23.4 % (37.0-47.0); HEMOGLOBIN 7.4 gm/dL (12.0-15.0); MCH 31.6 pg (26.0-34.0); MCHC 31.8 g/dL (28.0-37.0); MCV 99.6 fL (80.0-100.0); RBC 2.35 mil/uL (4.20-5.00); RDW 22.1 % (10.5-14.5); WBC 12.1 thou/uL (4.0-11.0)
[2017-10-23 06:22] LABS: CALCIUM 7.8 mg/dL (8.5-10.1); CREATININE 0.8 mg/dL (0.6-1.0); POTASSIUM 3.8 mmol/L (3.5-5.1)
[2017-10-23 21:43] LABS: CALCIUM 8.1 mg/dL (8.5-10.1); CREATININE 0.9 mg/dL (0.6-1.0)
[2017-10-23 21:45] LABS: POTASSIUM 2.8 mmol/L (3.5-5.1)
[2017-10-24] VITALS (24 sets, daily range): BP systolic 101–128; BP diastolic 71–100
[2017-10-24 05:16] LABS: BE(vivo) -1.5 mmol/L (-2 to +3); HCO3 20.9 mmol/L (22.0-26.0); PCO2 26.8 mmHg (35.0-45.0); PO2 57.6 mmHg (80.0-100.0); pH 7.509 (7.360-7.450); sO2 92.9 % (92.0-98.0)
[2017-10-24 05:19] LABS: HEMOGLOBIN 8.1 gm/dL (12.0-15.0)
[2017-10-24 05:21] LABS: HEMATOCRIT 24.4 % (37.0-47.0); MCH 32.7 pg (26.0-34.0); MCHC 33.1 g/dL (28.0-37.0); MCV 98.7 fL (80.0-100.0); RBC 2.47 mil/uL (4.20-5.00); RDW 22.3 % (10.5-14.5)
[2017-10-24 05:32] LABS: ALBUMIN 1.8 g/dL (3.4-5.0); CREATININE 0.8 mg/dL (0.6-1.0); DIRECT BILIRUBIN 5.1 mg/dL (<0.1-0.3); TOTAL BILIRUBIN 5.9 mg/dL (<0.1-1.0)
[2017-10-24 11:23] LABS: POTASSIUM 3.2 mmol/L (3.5-5.1)
[2017-10-24 12:30] LABS: MAGNESIUM 1.8 mg/dL (1.8-2.4)
[2017-10-24 17:38] LABS: MAGNESIUM 2.1 mg/dL (1.8-2.4); POTASSIUM 3.6 mmol/L (3.5-5.1)
[2017-10-25] VITALS (23 sets, daily range): BP systolic 105–134; BP diastolic 77–101
[2017-10-25 04:09] LABS: HEMATOCRIT 24.5 % (37.0-47.0); HEMOGLOBIN 8.1 gm/dL (12.0-15.0); MCH 32.6 pg (26.0-34.0); MCHC 32.9 g/dL (28.0-37.0); MCV 99.1 fL (80.0-100.0); PLATELET COUNT 123 thou/uL (150-400); RBC 2.47 mil/uL (4.20-5.00); RDW 22.2 % (10.5-14.5); WBC 23.4 thou/uL (4.0-11.0)
[2017-10-25 04:28] LABS: ALBUMIN 1.9 g/dL (3.4-5.0); CALCIUM 8.4 mg/dL (8.5-10.1); CREATININE 0.8 mg/dL (0.6-1.0); PHOSPHORUS 4.2 mg/dL (2.5-4.9); POTASSIUM 3.7 mmol/L (3.5-5.1); TOTAL BILIRUBIN 5.4 mg/dL (<0.1-1.0); TOTAL PROTEIN 5.3 g/dL (6.4-8.2)
[2017-10-25 04:30] LABS: HCO3 22.2 mmol/L (22.0-26.0); PCO2 31.1 mmHg (35.0-45.0); PO2 55.3 mmHg (80.0-100.0); pH 7.472 (7.360-7.450); sO2 91.1 % (92.0-98.0)
[2017-10-25 05:42] LABS: ABSOLUTE NEUTROPHILS 20.1 thou/uL (1.4-8.2); ANISOCYTOSIS 3+; LARGE PLATELETS OCCASIONAL; MACROCYTES 1+; METAMYELOCYTES 2 %; MYELOCYTES 4 %; NUCLEATED RBCS 9 /100WBC; POLYCHROMASIA OCCASIONAL
[2017-10-26] VITALS (23 sets, daily range): BP systolic 106–138; BP diastolic 83–105
[2017-10-26 04:33] LABS: HEMATOCRIT 23.9 % (37.0-47.0); HEMOGLOBIN 7.6 gm/dL (12.0-15.0); MCH 31.9 pg (26.0-34.0); MCHC 31.8 g/dL (28.0-37.0); MCV 100.3 fL (80.0-100.0); PLATELET COUNT 117 thou/uL (150-400); RBC 2.39 mil/uL (4.20-5.00); RDW 23.3 % (10.5-14.5); WBC 19.3 thou/uL (4.0-11.0)
[2017-10-26 04:45] LABS: ALBUMIN 1.8 g/dL (3.4-5.0); CALCIUM 8.1 mg/dL (8.5-10.1); CREATININE 0.8 mg/dL (0.6-1.0); DIRECT BILIRUBIN 3.8 mg/dL (<0.1-0.3); MAGNESIUM 1.9 mg/dL (1.8-2.4); POTASSIUM 3.5 mmol/L (3.5-5.1); TOTAL BILIRUBIN 4.4 mg/dL (<0.1-1.0); TOTAL PROTEIN 5.3 g/dL (6.4-8.2)
[2017-10-26 06:01] LABS: ABSOLUTE NEUTROPHILS 17.6 thou/uL (1.4-8.2); ATYPICAL LYMPHS 1 %; METAMYELOCYTES 1 %; NUCLEATED RBCS 7 /100WBC
[2017-10-26 06:02] LABS: ANISOCYTOSIS 3+; LARGE PLATELETS FEW; POLYCHROMASIA 2+
[2017-10-27] VITALS (43 sets, daily range): BP systolic 84–163; BP diastolic 57–127
[2017-10-27 04:40] LABS: HEMATOCRIT 23.3 % (37.0-47.0); HEMOGLOBIN 7.5 gm/dL (12.0-15.0); MCH 31.8 pg (26.0-34.0); MCHC 32.1 g/dL (28.0-37.0); MCV 99.3 fL (80.0-100.0); PLATELET COUNT 96 thou/uL (150-400); RBC 2.35 mil/uL (4.20-5.00); RDW 23.4 % (10.5-14.5); WBC 20.7 thou/uL (4.0-11.0)
[2017-10-27 04:56] LABS: ALBUMIN 1.7 g/dL (3.4-5.0); CALCIUM 8.1 mg/dL (8.5-10.1); CREATININE 0.7 mg/dL (0.6-1.0); MAGNESIUM 1.8 mg/dL (1.8-2.4); POTASSIUM 4.3 mmol/L (3.5-5.1); TOTAL BILIRUBIN 3.3 mg/dL (<0.1-1.0); TOTAL PROTEIN 5.5 g/dL (6.4-8.2)
[2017-10-27 05:59] LABS: ABSOLUTE NEUTROPHILS 20.1 thou/uL (1.4-8.2); ANISOCYTOSIS 3+; NUCLEATED RBCS 6 /100WBC; PLATELET ESTIMATE DECREASED; POLYCHROMASIA 2+
[2017-10-27 06:00] LABS: LARGE PLATELETS OCCASIONAL
[2017-10-27 10:27] LABS: BE(vivo) 4.5 mmol/L (-2 to +3); HCO3 28.4 mmol/L (22.0-26.0); PO2 446.2 mmHg (80.0-100.0); sO2 99.9 % (92.0-98.0)
[2017-10-27 12:49] LABS: PHOSPHORUS 4.3 mg/dL (2.5-4.9)
[2017-10-28] VITALS (24 sets, daily range): BP systolic 92–111; BP diastolic 65–84
[2017-10-28 04:08] LABS: ABSOLUTE NEUTROPHILS 18.2 thou/uL (1.4-8.2); BASOPHILS 0.4 % (0.0-2.0); HEMATOCRIT 21.4 % (37.0-47.0); LYMPHOCYTES 2.1 % (24.0-44.0); MCH 32.1 pg (26.0-34.0); MCHC 32.5 g/dL (28.0-37.0); MCV 98.6 fL (80.0-100.0); MONOCYTES 1.9 % (1.0-8.0); PLATELET COUNT 73 thou/uL (150-400); POLYS 95.6 % (36.0-66.0); RBC 2.17 mil/uL (4.20-5.00); RDW 22.5 % (10.5-14.5)
[2017-10-28 04:10] LABS: CALCIUM 8.1 mg/dL (8.5-10.1); CREATININE 0.7 mg/dL (0.6-1.0); POTASSIUM 3.7 mmol/L (3.5-5.1)
[2017-10-28 09:52] LABS: BE(vivo) 5.8 mmol/L (-2 to +3); HCO3 28.9 mmol/L (22.0-26.0); PCO2 35.8 mmHg (35.0-45.0); PO2 113.5 mmHg (80.0-100.0); pH 7.525 (7.360-7.450); sO2 98.6 % (92.0-98.0)
[2017-10-29] VITALS (11 sets, daily range): BP systolic 96–115; BP diastolic 70–87
[2017-10-29 05:19] LABS: BE(vivo) 5.8 mmol/L (-2 to +3); HCO3 29.4 mmol/L (22.0-26.0); PCO2 38.8 mmHg (35.0-45.0); PO2 135.9 mmHg (80.0-100.0); pH 7.498 (7.360-7.450); sO2 98.9 % (92.0-98.0)
[2017-10-29 06:01] LABS: ABSOLUTE NEUTROPHILS 15.9 thou/uL (1.4-8.2); BASOPHILS 0.1 % (0.0-2.0); HEMATOCRIT 24.2 % (37.0-47.0); HEMOGLOBIN 7.8 gm/dL (12.0-15.0); LYMPHOCYTES 1.9 % (24.0-44.0); MCH 32.2 pg (26.0-34.0); MCHC 32.3 g/dL (28.0-37.0); MCV 99.5 fL (80.0-100.0); MONOCYTES 2.3 % (1.0-8.0); POLYS 95.7 % (36.0-66.0); RBC 2.43 mil/uL (4.20-5.00); RDW 22.2 % (10.5-14.5); WBC 16.6 thou/uL (4.0-11.0)
[2017-10-29 06:20] LABS: ALBUMIN 1.9 g/dL (3.4-5.0); CALCIUM 8.2 mg/dL (8.5-10.1); CREATININE 0.6 mg/dL (0.6-1.0); MAGNESIUM 1.8 mg/dL (1.8-2.4); POTASSIUM 3.8 mmol/L (3.5-5.1); TOTAL PROTEIN 5.6 g/dL (6.4-8.2)
[2017-10-29 09:55] LABS: ANISOCYTOSIS 3+; MACROCYTES 1+; POLYCHROMASIA SLIGHT
[2017-10-29 09:57] LABS: PLATELET COUNT 100 thou/uL (150-400)
[2017-10-29 10:00] LABS: LARGE PLATELETS FEW
[2017-10-29 11:57] LABS: BE(vivo) 9.6 mmol/L (-2 to +3); HCO3 32.9 mmol/L (22.0-26.0); PCO2 39.5 mmHg (35.0-45.0); PO2 125.9 mmHg (80.0-100.0); pH 7.539 (7.360-7.450); sO2 98.8 % (92.0-98.0)
[2017-10-30] VITALS (25 sets, daily range): BP systolic 97–137; BP diastolic 70–96
[2017-10-30 05:27] LABS: ABSOLUTE NEUTROPHILS 15.9 thou/uL (1.4-8.2); BASOPHILS 0.3 % (0.0-2.0); HEMATOCRIT 24.8 % (37.0-47.0); LYMPHOCYTES 1.6 % (24.0-44.0); MCHC 32.2 g/dL (28.0-37.0); MCV 99.4 fL (80.0-100.0); MONOCYTES 3.3 % (1.0-8.0); POLYS 94.8 % (36.0-66.0); RDW 22.4 % (10.5-14.5); WBC 16.8 thou/uL (4.0-11.0)
[2017-10-30 05:40] LABS: ALBUMIN 1.9 g/dL (3.4-5.0); CALCIUM 8.2 mg/dL (8.5-10.1); CREATININE 0.5 mg/dL (0.6-1.0); DIRECT BILIRUBIN 1.5 mg/dL (<0.1-0.3); MAGNESIUM 1.8 mg/dL (1.8-2.4); PHOSPHORUS 4.4 mg/dL (2.5-4.9); POTASSIUM 4.1 mmol/L (3.5-5.1); TOTAL BILIRUBIN 2.1 mg/dL (<0.1-1.0); TOTAL PROTEIN 5.5 g/dL (6.4-8.2)
[2017-10-30 07:49] LABS: ANISOCYTOSIS 3+
[2017-10-30 07:50] LABS: MACROCYTES 1+; MICROCYTES 1+; POLYCHROMASIA SLIGHT
[2017-10-30 09:53] LABS: PLATELET COUNT 117 thou/uL (150-400)
[2017-10-31] VITALS (24 sets, daily range): BP systolic 96–156; BP diastolic 73–103
[2017-10-31 05:50] LABS: ALBUMIN 1.8 g/dL (3.4-5.0); CALCIUM 8.3 mg/dL (8.5-10.1); CREATININE 0.6 mg/dL (0.6-1.0); DIRECT BILIRUBIN 1.4 mg/dL (<0.1-0.3); MAGNESIUM 2.2 mg/dL (1.8-2.4); PHOSPHORUS 4.4 mg/dL (2.5-4.9); POTASSIUM 4.6 mmol/L (3.5-5.1); TOTAL BILIRUBIN 1.8 mg/dL (<0.1-1.0); TOTAL PROTEIN 5.1 g/dL (6.4-8.2)
[2017-10-31 06:19] LABS: ABSOLUTE NEUTROPHILS 13.7 thou/uL (1.4-8.2); BASOPHILS 0.5 % (0.0-2.0); EOSINOPHILS 0.2 % (0.0-3.0); HEMATOCRIT 25.1 % (37.0-47.0); HEMOGLOBIN 8.1 gm/dL (12.0-15.0); LYMPHOCYTES 1.8 % (24.0-44.0); MCH 32.3 pg (26.0-34.0); MCHC 32.5 g/dL (28.0-37.0); MCV 99.4 fL (80.0-100.0); MONOCYTES 4.2 % (1.0-8.0); PLATELET COUNT 91 thou/uL (150-400); POLYS 93.3 % (36.0-66.0); RBC 2.52 mil/uL (4.20-5.00); RDW 22.3 % (10.5-14.5); WBC 14.7 thou/uL (4.0-11.0)
[2017-11-01] VITALS (19 sets, daily range): BP systolic 97–116; BP diastolic 66–90
[2017-11-01 05:38] LABS: ABSOLUTE NEUTROPHILS 11.5 thou/uL (1.4-8.2); BASOPHILS 0.1 % (0.0-2.0); EOSINOPHILS 0.1 % (0.0-3.0); HEMATOCRIT 24.5 % (37.0-47.0); HEMOGLOBIN 7.9 gm/dL (12.0-15.0); LYMPHOCYTES 2.3 % (24.0-44.0); MCH 32.5 pg (26.0-34.0); MCHC 32.5 g/dL (28.0-37.0); MCV 100.1 fL (80.0-100.0); MONOCYTES 5.2 % (1.0-8.0); PLATELET COUNT 96 thou/uL (150-400); POLYS 92.3 % (36.0-66.0); RBC 2.44 mil/uL (4.20-5.00); RDW 21.2 % (10.5-14.5); WBC 12.4 thou/uL (4.0-11.0)
[2017-11-01 05:45] LABS: CALCIUM 8.2 mg/dL (8.5-10.1); CREATININE 0.5 mg/dL (0.6-1.0); POTASSIUM 5.1 mmol/L (3.5-5.1)
[2017-11-01 05:56] LABS: ANISOCYTOSIS 2+; POLYCHROMASIA 1+
[2017-11-01 05:57] LABS: PLATELET ESTIMATE DECREASED
[2017-11-01 05:58] LABS: LARGE PLATELETS OCCASIONAL
[2017-11-02 06:32] LABS: HEMATOCRIT 25.3 % (37.0-47.0); HEMOGLOBIN 8.3 gm/dL (12.0-15.0); MCH 33.2 pg (26.0-34.0); MCHC 32.9 g/dL (28.0-37.0); MCV 100.9 fL (80.0-100.0); RBC 2.51 mil/uL (4.20-5.00); RDW 20.6 % (10.5-14.5); WBC 10.8 thou/uL (4.0-11.0)
[2017-11-02 06:43] LABS: ALBUMIN 2.1 g/dL (3.4-5.0); CALCIUM 8.2 mg/dL (8.5-10.1); CREATININE 0.6 mg/dL (0.6-1.0); MAGNESIUM 1.9 mg/dL (1.8-2.4); PHOSPHORUS 4.2 mg/dL (2.5-4.9); POTASSIUM 4.6 mmol/L (3.5-5.1); TOTAL BILIRUBIN 1.7 mg/dL (<0.1-1.0); TOTAL PROTEIN 5.4 g/dL (6.4-8.2)
[2017-11-02 07:45] VITALS: BP 127/83
[2017-11-02 11:49] VITALS: BP 119/86
[2017-11-02 15:40] VITALS: BP 118/85
[2017-11-02 19:38] VITALS: BP 123/87
[2017-11-03 04:02] VITALS: BP 120/84
[2017-11-03 07:43] VITALS: BP 118/84
[2017-11-03 08:42] LABS: ALBUMIN 2.2 g/dL (3.4-5.0); DIRECT BILIRUBIN 1.1 mg/dL (<0.1-0.3); TOTAL BILIRUBIN 1.7 mg/dL (<0.1-1.0); TOTAL PROTEIN 5.4 g/dL (6.4-8.2)
[2017-11-03 17:38] VITALS: BP 120/84
[2017-11-03 20:00] VITALS: BP 119/91
[2017-11-04 00:30] VITALS: BP 118/84
[2017-11-04 05:30] VITALS: BP 122/88
[2017-11-04 08:39] LABS: HEMATOCRIT 26.7 % (37.0-47.0); HEMOGLOBIN 8.7 gm/dL (12.0-15.0); MCH 32.8 pg (26.0-34.0); MCHC 32.5 g/dL (28.0-37.0); RBC 2.64 mil/uL (4.20-5.00); RDW 19.8 % (10.5-14.5); WBC 9.9 thou/uL (4.0-11.0)
[2017-11-04 08:52] LABS: ALBUMIN 2.2 g/dL (3.4-5.0); CALCIUM 8.1 mg/dL (8.5-10.1); CREATININE 0.6 mg/dL (0.6-1.0); POTASSIUM 3.6 mmol/L (3.5-5.1); TOTAL BILIRUBIN 1.7 mg/dL (<0.1-1.0); TOTAL PROTEIN 5.2 g/dL (6.4-8.2)
[2017-11-04 08:53] VITALS: BP 121/90
[2017-11-04] MEDS ORDERED: VANCOMYCIN HCL10 GM PO (12:41)
[2017-11-04] MEDS ORDERED: PANTOPRAZOLE SO40 M1 PO (12:42)
[2017-11-04] MEDS ORDERED: PREDNISONE 10 M10 MG PO (12:46)
[2017-11-04 13:40] VITALS: BP 117/87
[2017-11-04 15:25] VITALS: BP 115/86
[2017-11-04 20:20] VITALS: BP 104/76
[2017-11-04 21:12] LABS: URINE BILIRUBIN NEGATIVE (Negative); URINE BLOOD 1+ (Negative); URINE CLARITY CLOUDY; URINE COLOR YELLOW; URINE GLUCOSE-RANDOM* NEGATIVE (Negative); URINE KETONES NEGATIVE (Negative); URINE LEUKOCYTES NEGATIVE (Negative); URINE NITRITE NEGATIVE (Negative); URINE PROTEIN (DIPSTICK) NEGATIVE (Negative); URINE UROBILINOGEN 0.2 E.U./dl (0.2-1.0)
[2017-11-04 21:31] LABS: BACTERIA >30 Many /HPF (None Seen); HYALINE CASTS 0-3 Few /LPF (None Seen); SQUAMOUS 0-3 Few /LPF (0-3)
[2017-11-04 21:32] LABS: CRYSTALS None Seen /LPF (None Seen); URINE WBC 6-15 Few /HPF (0-5)
[2017-11-05 04:20] VITALS: BP 121/90
[2017-11-05 07:40] VITALS: BP 128/98
[2017-11-05] MEDS ORDERED: FLOMAX0.4 MG PO (12:13)
== END 2017-11-05 15:51 | DRG 870 ==
LOC: ER 19:40 → EROBS 22:16 → ICU 22:16 → 3W 11-01 18:01
PROVIDERS: Family Medicine; Hospitalist; Internal Medicine; Internal Medicine Gastroenterology; Internal Medicine Infectious Disease; Internal Medicine Nephrology; Internal Medicine Pulmonary Disease; Nurse Practitioner; Nurse Practitioner Family; Physician Assistant
PROC: 02HV33Z Insertion of Infusion Device into Superior Vena Cava, Percutaneous Approach (ICD-10-PCS; 2017-10-16)
PROC: 30243N1 Transfusion of Nonautologous Red Blood Cells into Central Vein, Percutaneous Approach (ICD-10-PCS; 2017-10-16)
PROC: 0BH17EZ Insertion of Endotracheal Airway into Trachea, Via Natural or Artificial Opening (ICD-10-PCS; principal; 2017-10-17)
PROC: 5A1955Z Respiratory Ventilation, Greater than 96 Consecutive Hours (ICD-10-PCS; principal; 2017-10-17)
PROC: 4A133J1 Monitoring of Arterial Pulse, Peripheral, Percutaneous Approach (ICD-10-PCS; 2017-10-17)
PROC: 4A133B1 Monitoring of Arterial Pressure, Peripheral, Percutaneous Approach (ICD-10-PCS; 2017-10-17)
PROC: 03HY32Z Insertion of Monitoring Device into Upper Artery, Percutaneous Approach (ICD-10-PCS; 2017-10-17)
PROC: 0W3P8ZZ Control Bleeding in Gastrointestinal Tract, Via Natural or Artificial Opening Endoscopic (ICD-10-PCS; 2017-10-19)
PROC: 3E0436Z Introduction of Nutritional Substance into Central Vein, Percutaneous Approach (ICD-10-PCS; 2017-10-22)
DX: A41.9 Sepsis, unspecified organism (principal); G92 Toxic encephalopathy; J18.9 Pneumonia, unspecified organism; R65.21 Severe sepsis with septic shock; J96.01 Acute respiratory failure with hypoxia; N17.0 Acute kidney failure with tubular necrosis; K92.2 Gastrointestinal hemorrhage, unspecified; N39.0 Urinary tract infection, site not specified; D62 Acute posthemorrhagic anemia; E46 Unspecified protein-calorie malnutrition; E87.0 Hyperosmolality and hypernatremia; J90 Pleural effusion, not elsewhere classified; A04.72 Enterocolitis due to Clostridium difficile, not specified as recurrent; F17.210 Nicotine dependence, cigarettes, uncomplicated; E87.6 Hypokalemia; E03.9 Hypothyroidism, unspecified; T68.XXXA Hypothermia, initial encounter; K72.90 Hepatic failure, unspecified without coma; K44.9 Diaphragmatic hernia without obstruction or gangrene; K20.9 Esophagitis, unspecified; K76.0 Fatty (change of) liver, not elsewhere classified; F10.20 Alcohol dependence, uncomplicated; D53.9 Nutritional anemia, unspecified; K70.9 Alcoholic liver disease, unspecified; R33.9 Retention of urine, unspecified; J44.9 Chronic obstructive pulmonary disease, unspecified; E53.8 Deficiency of other specified B group vitamins; E63.8 Other specified nutritional deficiencies; Z87.891 Personal history of nicotine dependence
CPT/HCPCS: 10078; 10779

== ENCOUNTER 2019-12-29 02:03 | Emergency (ER) | payer OTHER | END 2019-12-29 05:47 | disposition home or self-care (01) | LOC: ER 02:03 | DX: S42.212A Unspecified displaced fracture of surgical neck of left humerus, initial encounter for closed fracture (principal); F10.20 Alcohol dependence, uncomplicated; E87.6 Hypokalemia; F17.210 Nicotine dependence, cigarettes, uncomplicated; Z79.2 Long term (current) use of antibiotics; Z79.899 Other long term (current) drug therapy; W18.30XA Fall on same level, unspecified, initial encounter; Y93.89 Activity, other specified; Y92.009 Unspecified place in unspecified non-institutional (private) residence as the place of occurrence of the external cause; Y99.8 Other external cause status; Y90.7 Blood alcohol level of 200-239 mg/100 ml ==